=== PATIENT | female | born 1940 | race Caucasian/White ===

== ENCOUNTER 2020-09-02 08:36 | Outpatient (REF) | payer MEDICARE, SELFPAY ==
[2020-09-02 09:35] LABS: Estimated Average Glucose 278 mg/dL; Hemoglobin A1c % 11.3 %
[2020-09-02 09:52] LABS: Alanine Aminotransferase 35 U/L (0-31); Anion Gap 18 (12-20); Carbon Dioxide 20 mmol/L (22-29); Chloride 106 mmol/L (96-108); Cholesterol 323 mg/dL; Estimated Glomerular Filt Rate 36; Glucose Fasting 222 mg/dL (60-99); HDL Cholesterol 61 mg/dL; Potassium 4.8 mmol/L (3.3-5.1); Sodium 139 mmol/L (135-145); Triglycerides 468 mg/dL
== END 2020-09-02 08:37 | disposition home or self-care (01) ==
LOC: HO.LAB 08:36
PROVIDERS: PCP Family Medicine; Visit Provider Family Medicine
DX: E11.9 Type 2 diabetes mellitus without complications (principal); I10 Essential (primary) hypertension; E78.00 Pure hypercholesterolemia, unspecified; Z79.899 Other long term (current) drug therapy
CPT/HCPCS: 36415; 80051; 80061; 82550; 82565; 82947; 83036; 84460